=== PATIENT | female | born 1945 | race Asian ===

== ENCOUNTER → 2016-10-25 | Outpatient (CLI) | payer MEDICARE, OTHER ==
[~2016-10-25] MED LIST: OMEGA 3-6-9 CO400 MG PO; VITAMIN D1000 UNI1 PO
--- NOTE | ~2016-10-25 | MY29 ---
[facility] A Service of [facility] RADIOLOGY TEXT RESULTS PATIENT: BRETT CANNON V LOCATION: [facility] : 43 UNIT #: [id number] AGE: [address]: Sophie Noel MD SEX: F ORDER DR: [id number] [facility] [address]. [place], [place] [address] [id number] O MR#: [id number] Acc #: [id number] NAME: BRETT CANNON : 1945 SEX: F STUDY DATE/TIME: 10/25/2016 13:52 UNIT: [facility] ROOM: STUDY DESCRIPTION: MY WAYNE SCREENING W/ CAD BILAT Attending Physician: Sophie Noel M.D. Referring Physician: Sophie Noel M.D. Ordering Physician: Sophie Noel M.D. Primary Care Physician: Sophie Noel M.D. MEDICAL IMAGING REPORT This report is preliminary unless electronic signature is present EXAM Bilateral digital screening mammogram with CAD DATE 10/25/2016 HISTORY No personal or family history of breast cancer or current complaints. COMPARISON Bilateral screening mammogram 10/19/2015, 10/15/2014, 10/14/2013. FINDINGS CC and MLO views were obtained of each breast utilizing digital technique and reviewed with an FDA-approved CAD device. Heterogeneously dense fibroglandular tissue is present bilaterally. No focal suspicious nodule, architectural distortion or clustered microcalcification is seen. There is no abnormal skin thickening or nipple retraction. IMPRESSION 1. BIRADS 2. Benign findings. Routine bilateral screening mammogram is recommended in one year. Patients over the age of 40 are entered into a reminder system with target due date for the next mammogram. A result letter will also be sent to the patient. BIRADS: 2 Benign Finding [facility] A Service of [facility] RADIOLOGY TEXT RESULTS PATIENT: BRETT CANNON V LOCATION: [facility] : 43 UNIT #: [id number] AGE: [address]: Sophie Noel MD SEX: F ORDER DR: Dictated by... Stephanie Medina M.D. THIS IS AN ELECTRONICALLY VERIFIED REPORT Stephanie Medina M.D. at 10/27/2016 8:49 AM MELA/rodger TD: 10/25/2016 22:24 JOB #: [id number] MEDICAL IMAGING REPORT Page 1 of 1 COPY
== END | disposition home or self-care (01) ==
LOC: CWCC 13:15
DX: Z12.31 Encounter for screening mammogram for malignant neoplasm of breast (principal)
CPT/HCPCS: G0202